=== PATIENT | female | born 1940 | race Caucasian/White ===

== ENCOUNTER 2023-02-26 07:46 | Day surgery (SDC) | payer MEDICARE, OTHER ==
[2023-02-26] MEDS ORDERED: Sodium Chloride 0.9% 10 ML Syringe FLUSH PRN (08:00)
[2023-02-26] MEDS ORDERED: Acetaminophen 325 MG Tab PO PRN (08:00)
[2023-02-26] MEDS ORDERED: Moxifloxacin 0.5% Ophth Soln 3 ML Bottle EYERT ONE (08:00)
[2023-02-26] MEDS ORDERED: Timolol Maleate 0.5% Ophth Soln 5 ML Bottle EYERT ONE (08:00)
[2023-02-26] MEDS ORDERED: Povidone-Iodine 5% Sterile Ophth Soln 30 ML Bottle EYERT ONE ×2 (08:00→09:07)
[2023-02-26] MEDS ORDERED: Ondansetron 4 MG/2 ML SDV IVPUSH PRN (08:00)
[2023-02-26] MEDS ORDERED: Cataract Ophth Solution EYERT ONE (08:00)
[2023-02-26] MEDS ORDERED: Acetaminophen/Codeine 300-30 MG Tab PO PRN (08:00)
[2023-02-26] MEDS ORDERED: Phenylephrine 10% Ophth Soln 5 ML Bot EYERT PRN (08:00)
[2023-02-26] MEDS ORDERED: Proparacaine 0.5% Ophth Soln 15 ML Bottle EYERT ONE ×2 (08:00→09:05)
[2023-02-26] MEDS ORDERED: Tropicamide 1% Ophth Soln 15 ML Bottle EYERT ONE (08:00)
[2023-02-26] MEDS ORDERED: Diclofenac Sodium 0.1% Ophth Soln 5 ML Bottle EYERT ONE (09:05)
[2023-02-26] MEDS ORDERED: Dexamethasone/Tobramycin 0.1-0.3% Ophth Oint 3.5 GM Tube EYERT ONE (09:06)
[2023-02-26] MEDS ORDERED: Vancomycin 500 MG SDV EYERT ONE (09:06)
[2023-02-26] MEDS ORDERED: Balanced Salt Solution Ophth Irrig 500 ML Bottle IOCULAR ONE (09:06)
[2023-02-26] MEDS ORDERED: Lidocaine 1% 30 ML SDV ONE (09:06)
[2023-02-26] MEDS ORDERED: Chondroitin Sulfate/Hyaluronate Sodium Ophth Inj 0.75 ML Syringe EYERT ONE (09:07)
[2023-02-26] MEDS ORDERED: Brimonidine 0.2% Ophth Soln 5 ML Bottle EYERT ONE (09:07)
== END 2023-02-26 09:39 | disposition home or self-care (01) ==
LOC: DL.SDS 07:46
PROVIDERS: ATTEND Ophthalmology
DX: H25.813 Combined forms of age-related cataract, bilateral (principal); K62.89 Other specified diseases of anus and rectum; I10 Essential (primary) hypertension; E78.5 Hyperlipidemia, unspecified; F41.9 Anxiety disorder, unspecified; F32.A Depression, unspecified; Z88.2 Allergy status to sulfonamides; Z79.899 Other long term (current) drug therapy
CPT/HCPCS: 00142; A9270-GY; J3370; J3490; V2632

== ENCOUNTER 2023-03-12 07:45 | Day surgery (SDC) | payer MEDICARE, OTHER ==
[2023-03-12] MEDS ORDERED: Acetaminophen/Codeine 300-30 MG Tab PO PRN (08:00)
[2023-03-12] MEDS ORDERED: Ondansetron 4 MG/2 ML SDV IVPUSH PRN (08:00)
[2023-03-12] MEDS ORDERED: Sodium Chloride 0.9% 10 ML Syringe FLUSH PRN (08:00)
[2023-03-12] MEDS ORDERED: Phenylephrine 10% Ophth Soln 5 ML Bot EYELF PRN (08:00)
[2023-03-12] MEDS ORDERED: Povidone-Iodine 5% Sterile Ophth Soln 30 ML Bottle EYELF ONE ×2 (08:00→09:09)
[2023-03-12] MEDS ORDERED: Timolol Maleate 0.5% Ophth Soln 5 ML Bottle EYELF ONE (08:00)
[2023-03-12] MEDS ORDERED: Cataract Ophth Solution EYELF ONE (08:00)
[2023-03-12] MEDS ORDERED: Moxifloxacin 0.5% Ophth Soln 3 ML Bottle EYELF ONE (08:00)
[2023-03-12] MEDS ORDERED: Tropicamide 1% Ophth Soln 15 ML Bottle EYELF ONE (08:00)
[2023-03-12] MEDS ORDERED: Proparacaine 0.5% Ophth Soln 15 ML Bottle EYELF ONE (08:00)
[2023-03-12] MEDS ORDERED: Acetaminophen 325 MG Tab PO PRN (08:00)
[2023-03-12] MEDS ORDERED: Tetracaine HCl/PF 0.5% 4 ML Bottle EYELF ONE (09:09)
[2023-03-12] MEDS ORDERED: Lidocaine 1% 30 ML SDV ONE (09:09)
[2023-03-12] MEDS ORDERED: Diclofenac Sodium 0.1% Ophth Soln 5 ML Bottle EYELF ONE (09:10)
[2023-03-12] MEDS ORDERED: Chondroitin Sulfate/Hyaluronate Sodium Ophth Inj 0.75 ML Syringe EYELF ONE (09:10)
[2023-03-12] MEDS ORDERED: Brimonidine 0.2% Ophth Soln 5 ML Bottle EYELF ONE (09:10)
[2023-03-12] MEDS ORDERED: Dexamethasone/Tobramycin 0.1-0.3% Ophth Oint 3.5 GM Tube EYELF ONE (09:10)
[2023-03-12] MEDS ORDERED: Balanced Salt Solution Ophth Irrig 500 ML Bottle IOCULAR ONE (09:11)
[2023-03-12] MEDS ORDERED: Vancomycin 500 MG SDV EYELF ONE (09:11)
== END 2023-03-12 09:40 | disposition home or self-care (01) ==
LOC: DL.SDS 07:45
PROVIDERS: ATTEND Optometrist
DX: H25.813 Combined forms of age-related cataract, bilateral (principal); F41.9 Anxiety disorder, unspecified; K62.89 Other specified diseases of anus and rectum; F32.A Depression, unspecified; E78.5 Hyperlipidemia, unspecified; I10 Essential (primary) hypertension; Z79.899 Other long term (current) drug therapy; Z88.1 Allergy status to other antibiotic agents
CPT/HCPCS: 00142; A9270-GY; J3370; J3490; V2632